=== PATIENT | female | born 1945 | race African-American/Black ===

== ENCOUNTER 2020-07-25 06:35 | Inpatient (IN) | payer OTHER ==
[~2020-07-25 06:35] MED LIST: ALL DAY ALLERGY10 M2 PO; AMARYL1 MG PO; ASPIRIN CHEWABL81 MG PO; ASPIRIN EC81 MG PO; ATIVAN1 MG PO; BACLOFEN 10MG T10 MG PO; BUMEX1 MG PO; CATAPRES0.1 MG PO; COLESTID1 GM PO; EFFEXOR-XR 75 M75 MG PO; GABAPENTIN600 MG PO; K-DUR20 MEQ PO; LASIX80 MG PO; LINZESS145 MCG PO; LISINOPRIL 10MG10 MG PO; METFORMIN HCL500 MG PO; PRINIVIL10 MG PO; PROTONIX40 M1 PO; REQUIP1 MG PO; SINGULAIR10 MG PO; SYNTHROID112 MC1 PO; TENORMIN50 MG PO; TRAZODONE HCL50 MG PO; TRULICITY1.5 MG/0.5 SC; VENTOLIN HFA18 GM INH; VICTOZA 3-0.6 MG/0.1 SC; VITAMIN B-121000 MC1 PO; ZOFRAN8 MG PO
[2020-07-25] MEDS ORDERED: PERCOCET 5-3251 EACH PO (08:07)
[2020-07-26 04:46] LABS: BASOPHIL 0.1 % (0-2); EOSINOPHIL 0 % (0-7); HCT 33.2 % (37.0-47.0); HGB 10.5 g/dl (12.5-16.0); LYMPHOCYTE 12.4 % (15-48); MCH 28.5 pg (25.0-31.0); MCHC 31.6 g/dL (32.0-36.0); MONOCYTE 9.3 % (0-12); MPV 10.8 fL (6.0-9.5); NEUTROPHIL 77.9 % (41-80); NRBC 0; PLT 233 K/uL (150-400); RBC 3.69 M/uL (4.20-5.40); WBC 11.1 K/uL (4.0-10.5)
[2020-07-26 04:58] LABS: BUN/CREAT RATIO (CALC) 30.9 RATIO; CREATININE 0.94 mg/dL (0.51-0.95); POTASSIUM 3.9 mmol/L (3.5-5.1)
[2020-07-26] MEDS ORDERED: ASPIRIN CHEWABL81 MG PO ×2 (09:06→09:07)
[2020-07-26] MEDS ORDERED: FEOSOL325 MG PO (09:06)
--- NOTE | 2020-07-26 09:30 | NUR ---
MET WITH PT. SHE WILL D/C HOME WITH HER SPOUSE. SHE STATES THAT SHE WILL HAVE HELP HER SON AND HER SISTER LIVE CLOSE BY. SHE HAS A CANE AT HOME AND A ROLLING WALKER. SHE WILL NOT BE HAVING HH AT THIS TIME, BUT WILL GO OUTPT. WHEN SHE IS RELEASED BY THE DOCTOR. PLAN IS TO D/CH [facility] TODAY. SHE WOULD ALSO LIKE TO MEET WITH FINANCIAL ASSITANCE, DEANNA SUTHERLAND. TC TO DEANNA AND LEFT A MESSAGE FOR HER TO SEE THE PT.
== END 2020-07-26 13:20 | disposition home or self-care (01) | DRG 483 ==
LOC: FSDC 06:35 → FMS 09:56
PROVIDERS: ADMIT Orthopaedic Surgery
PROC: 0LS40ZZ Reposition Left Upper Arm Tendon, Open Approach (ICD-10-PCS; 2020-07-25)
PROC: 0RRK00Z Replacement of Left Shoulder Joint with Reverse Ball and Socket Synthetic Substitute, Open Approach (ICD-10-PCS; principal; 2020-07-25 09:00)
DX: M19.012 Primary osteoarthritis, left shoulder (principal); M79.609 Pain in unspecified limb; E11.9 Type 2 diabetes mellitus without complications; I10 Essential (primary) hypertension; E78.5 Hyperlipidemia, unspecified; Z20.822 Contact with and (suspected) exposure to COVID-19; Z79.899 Other long term (current) drug therapy; Z79.82 Long term (current) use of aspirin; Z88.5 Allergy status to narcotic agent
CPT/HCPCS: 36415; 73020; 80048; 85025; 86850; 86900; 86901; 94010; 94760; 94762; 97162; 97166; 97530-GP; 97535; C1713; C1776; J0171; J0697; J0735; J1100; J1200; J2250; J2270; J2370; J2405; J2704; J2795; J3010; J7120

== ENCOUNTER → 2020-10-31 | Day surgery (SDC) | payer MEDICARE ==
[~2020-10-31] MED LIST changes: +FEOSOL325 MG PO; +PERCOCET 5-3251 EACH PO
== END | disposition home or self-care (01) ==
LOC: FAS 05:42
DX: M75.02 Adhesive capsulitis of left shoulder (principal); J44.9 Chronic obstructive pulmonary disease, unspecified; J45.909 Unspecified asthma, uncomplicated; E11.9 Type 2 diabetes mellitus without complications; I10 Essential (primary) hypertension; Z96.612 Presence of left artificial shoulder joint; Z20.822 Contact with and (suspected) exposure to COVID-19; Z87.19 Personal history of other diseases of the digestive system
CPT/HCPCS: 82962; 97161; 97530-GP; J2250; J2795; J7120